=== PATIENT | female | born 1935 | race Caucasian/White ===

== ENCOUNTER 2017-03-07 12:38 | Inpatient (IN) | payer OTHER, MEDICARE ==
[~2017-03-07] VITALS: Ht 160 cm; Wt 70.0 kg
[2017-03-07 13:41] LABS: BASOPHIL % 0.5 % (0-2); PLATELET COUNT 218 x10^3mcL (130-400); RED CELL DISTRIBUTION WIDTH 13.8 % (11.5-14.5)
[2017-03-07 13:55] LABS: CALCIUM 8.8 mg/dL (8.5-10.1); CARBON DIOXIDE 29.9 mmol/L (21-32); CHLORIDE SERUM 101 mmol/L (98-107); CREATININE SERUM 0.9 mg/dL (0.6-1.0); GLUCOSE SERUM 190 mg/dL (74-106); POTASSIUM SERUM 3.7 mmol/L (3.5-5.1); SODIUM SERUM 139 mmol/L (136-145)
[2017-03-07 14:07] LABS: ALBUMIN 3.8 g/dL (3.4-5.0); ALKALINE PHOSPHATASE 41 U/L (46-116); ALT/SGPT 124 U/L (14-59); AST/SGOT 84 U/L (15-37); BILIRUBIN TOTAL 0.47 mg/dL (0.20-1.00); MAGNESIUM 2.1 mg/dL (1.8-2.4); TOTAL PROTEIN, SERUM 7.3 g/dL (6.4-8.2)
[2017-03-07] MEDS ORDERED: FLONS (15:49)
[2017-03-07] MEDS ORDERED: LASIX40 MG PO (15:50)
[2017-03-07] MEDS ORDERED: PROCARDIA XL90 MG PO (15:50)
[2017-03-07] MEDS ORDERED: HYDRALAZINE HCL25 MG PO (15:50)
[2017-03-07] MEDS ORDERED: HCTZ/TRIAMTEREN1 CA1 PO (15:52)
[2017-03-07] MEDS ORDERED: NOR5 PO (15:52)
[2017-03-07] MEDS ORDERED: ASPIR 8181 MG PO (15:52)
[2017-03-07 16:39] LABS: T3 TOTAL 1.11 ng/mL
[2017-03-07 16:50] VITALS: BP 132/71
[2017-03-07 16:58] VITALS: BP 132/71
[2017-03-07 17:06] LABS: PHOSPHOROUS 3.2 mg/dL (2.5-4.9)
[2017-03-07 17:08] LABS: CHOLESTEROL/HDL RATIO 4.8
[2017-03-07 17:14] LABS: FREE T4 0.99 ng/dL (0.76-1.46); T4(THYROXINE) 9.1 ug/dL (4.7-13.3)
[2017-03-07 18:19] LABS: microscopic required? YES; urine erythrocyte TRACE (NEGATIVE)
[2017-03-07 18:29] LABS: AMPHETAMINE QUAL UR NONE DETECTED (NEG <=1000)
[2017-03-07 21:06] VITALS: BP 111/60
[2017-03-07 23:22] VITALS: BP 110/61
[2017-03-08 06:56] LABS: BASOPHIL % 0.7 % (0-2); PLATELET COUNT 205 x10^3mcL (130-400); RED CELL DISTRIBUTION WIDTH 13.5 % (11.5-14.5)
[2017-03-08 08:22] LABS: CALCIUM 8.6 mg/dL (8.5-10.1); CARBON DIOXIDE 24.5 mmol/L (21-32); CHLORIDE SERUM 105 mmol/L (98-107); CREATININE SERUM 0.7 mg/dL (0.6-1.0); GLUCOSE SERUM 124 mg/dL (74-106); POTASSIUM SERUM 3.7 mmol/L (3.5-5.1); SODIUM SERUM 143 mmol/L (136-145)
[2017-03-08 10:25] VITALS: BP 128/72
[2017-03-08] MEDS ORDERED: LIPI10 PO (10:42)
[2017-03-08] MEDS ORDERED: METOPROLOL TART25 M1 PO (10:43)
[2017-03-08] MEDS ORDERED: CAR60 PO (10:44)
[2017-03-08] MEDS ORDERED: GLU500 PO (10:45)
[2017-03-08] MEDS ORDERED: ECO81 PO (10:45)
[2017-03-08 14:05] VITALS: BP 128/72
[2017-03-08 14:29] VITALS: BP 111/63
[2017-03-08] MEDS ORDERED: XARELTO10 M1 PO (14:40)
== END 2017-03-08 15:32 | disposition home or self-care (01) | DRG 201 ==
LOC: ED 12:38 → DU 14:31
PROVIDERS: Emergency Medicine; ADMIT Family Medicine
DX: I48.91 Unspecified atrial fibrillation (principal); E11.51 Type 2 diabetes mellitus with diabetic peripheral angiopathy without gangrene; E11.65 Type 2 diabetes mellitus with hyperglycemia; I10 Essential (primary) hypertension; E78.5 Hyperlipidemia, unspecified; E78.00 Pure hypercholesterolemia, unspecified; Z79.82 Long term (current) use of aspirin; Z87.891 Personal history of nicotine dependence; Z90.49 Acquired absence of other specified parts of digestive tract; Z79.899 Other long term (current) drug therapy; Z83.3 Family history of diabetes mellitus
CPT/HCPCS: 82962; 83880; 84439; J1644; J3490; J7030; J7040; Q0092